=== PATIENT | male | born 1990 | race Caucasian/White ===

== ENCOUNTER 2019-02-04 20:39 | Emergency (ER) | payer SELFPAY ==
--- NOTE | 2019-02-04 20:59 | ER ---
Nurse's Notes [facility] Name: Valentín Solis Age: 28 yrs Sex: Male : 1990 Arrival Date: 02/04/2019 Time: 20:42 Bed 18 Private MD: Diagnosis: Dental pain Presentation: 02/04 20:49 Presenting complaint: Patient states: "I got a bad toothache and I think its caused aj1 infection into my neck because it hurts from the tooth all the way down into my neck." Patient reports that he has been taking Motrin with no relief. Transition of care: patient was not received from another setting of care. Onset of symptoms was February 04, 2019. Risk Assessment: Do you want to hurt yourself or someone else? Patient reports no desire to harm self or others. Initial Sepsis Screen: Does the patient meet any 2 criteria? No. Patient's initial sepsis screen is negative. Does the patient have a suspected source of infection? Yes: Other: reports infected tooth. Care prior to arrival: None. 20:49 Method Of Arrival: Ambulatory aj 20:49 Acuity: BRYANNA 4 aj1 Triage Assessment: 20:51 General: Appears in no apparent distress. uncomfortable, Behavior is calm, cooperative, aj1 appropriate for age. Pain: Complains of pain in left jaw and neck Pain currently is 7 out of 10 on a pain scale. EENT: Reports toothache. Neuro: Level of Consciousness is awake, alert, obeys commands. Cardiovascular: Patient's skin is warm and dry. Respiratory: Airway is patent Respiratory effort is even, unlabored, Respiratory pattern is regular, symmetrical. Historical: - Allergies: 20:51 No Known Allergies; aj1 - Home Meds: 20:51 None [Active]; aj1 - PMHx: 20:51 None; aj1 - PSHx: 20:51 None; aj1 - Immunization history:: Flu vaccine is not up to date. - Social history:: Smoking status: Patient uses tobacco products, smokes one pack cigarettes per day. - Ebola Screening: : Patient denies travel to an Ebola-affected area in the 21 days before illness onset. Screenin:56 Abuse screen: Denies threats or abuse. Denies injuries from another. Nutritional cc3 screening: No deficits noted. Tuberculosis screening: No symptoms or risk factors identified. Fall Risk Ambulatory Aid- None/Bed Rest/Nurse Assist (0 pts). Gait- Normal/Bed Rest/Wheelchair (0 pts) Mental Status- Oriented to own ability (0 pts). Assessment: 20:56 Neuro: Level of Consciousness is awake, alert, obeys commands, Oriented to person, cc3 place, time, situation, Appropriate for age. 21:05 Reassessment: Patient appears in no apparent distress at this time. Patient and/or cc3 family updated on plan of care and expected duration. Pain level reassessed. Patient is alert, oriented x 3, equal unlabored respirations, skin warm/dry/pink. BELINDA Gillis discharged the patient home with prescriptions given. No IV cannula in situ. Patient left ER vitally stable and ambulatory. No valuables left in the patient's room. Patient denies pain at this time. Vital Signs: 20:51 BP 140 / 71; Pulse 93; Resp 18; Temp 98.9(O); Pulse Ox 100% on R/A; Weight 61.23 kg aj1 (R); Height 5 ft. 8 in. (172.72 cm) (R); 20:51 Body Mass Index 20.53 (61.23 kg, 172.72 cm) aj1 ED Course: 20:42 Patient arrived in ED. ds1 20:51 Triage completed. aj1 20:51 Arm band placed on Patient placed in an exam room. aj1 20:55 Chaim Gillis NP is PHCP. pm1 20:55 Jose Baez MD is Attending Physician. pm1 20:56 Itzel Short is Primary Nurse. cc3 20:56 Patient has correct armband on for positive identification. Bed in low position. Call cc3 light in reach. Side rails up X 1. Pulse ox on. NIBP on. 21:05 No provider procedures requiring assistance completed. Patient did not have IV access cc3 during this emergency room visit. Administered Medications: No medications were administered Outcome: 20:59 Discharge ordered by . pm1 21:05 Discharged to home ambulatory. cc3 21:05 Condition: stable 21:05 Discharge instructions given to patient, Instructed on discharge instructions, follow up and referral plans. medication usage, Demonstrated understanding of instructions, follow-up care, medications, Prescriptions given X 2. 21:19 Patient left the ED. cc3 Signatures: Lisa lE RN RN aj1 Rachell Palmer ds1 Chaim Gillis, LANDSCAPE ARCHITECT LANDSCAPE ARCHITECT pm1 tIzel Short cc3
--- NOTE | 2019-02-04 20:59 | EDPHYS ---
Physician Documentation [facility] Name: Valentín Solis Age: 28 yrs Sex: Male : 1990 Arrival Date: 02/04/2019 Time: 20:42 Bed 18 Private MD: ED Physician Jose Baez HPI: 02/04 20:58 This 28 yrs old Male presents to ER via Ambulatory with complaints of Dental pm1 pain. 20:58 The patient presents with pain. The problem is located in the lower left third molar. pm1 Onset: The symptoms/episode began/occurred yesterday. Duration: The symptoms are continuous. Modifying factors: The symptoms are alleviated by nothing. Associated signs and symptoms: Pertinent positives: left anterior cervical lymph node swelling, Pertinent negatives: fever, inability to eat. Severity of symptoms: in the emergency department the symptoms are actually worse. The patient has not experienced similar symptoms in the past. The patient has not recently seen a physician. Historical: - Allergies: 20:51 No Known Allergies; aj1 - Home Meds: 20:51 None [Active]; aj1 - PMHx: 20:51 None; aj1 - PSHx: 20:51 None; aj1 - Immunization history:: Flu vaccine is not up to date. - Social history:: Smoking status: Patient uses tobacco products, smokes one pack cigarettes per day. - Ebola Screening: : Patient denies travel to an Ebola-affected area in the 21 days before illness onset. ROS: 20:58 Constitutional: Negative for fever, chills, and weight loss, Eyes: Negative for injury, pm1 pain, redness, and discharge. 20:58 Cardiovascular: Negative for chest pain, palpitations, and edema, Respiratory: Negative for shortness of breath, cough, wheezing, and pleuritic chest pain, Abdomen/GI: Negative for abdominal pain, nausea, vomiting, diarrhea, and constipation, Back: Negative for injury and pain, MS/Extremity: Negative for injury and deformity, Skin: Negative for injury, rash, and discoloration, Neuro: Negative for headache, weakness, numbness, tingling, and seizure. 20:58 ENT: Positive for dental pain, Negative for ear pain, difficulty swallowing, difficulty handling secretions, hoarseness. 20:58 Neck: Positive for swollen nodes. Exam: 20:58 Constitutional: This is a well developed, well nourished patient who is awake, alert, pm1 and in no acute distress. Head/Face: Normocephalic, atraumatic. 20:58 Chest/axilla: Normal chest wall appearance and motion. Nontender with no deformity. No lesions are appreciated. Cardiovascular: Regular rate and rhythm with a normal S1 and S2. No gallops, murmurs, or rubs. Normal PMI, no JVD. No pulse deficits. Respiratory: Lungs have equal breath sounds bilaterally, clear to auscultation and percussion. No rales, rhonchi or wheezes noted. No increased work of breathing, no retractions or nasal flaring. Back: No spinal tenderness. No costovertebral tenderness. Full range of motion. Skin: Warm, dry with normal turgor. Normal color with no rashes, no lesions, and no evidence of cellulitis. MS/ Extremity: Pulses equal, no cyanosis. Neurovascular intact. Full, normal range of motion. 20:58 ENT: External ear(s): are unremarkable, Ear canal(s): are normal, TM's: are normal, Nose: is normal, Mouth: is normal, no abscess, no drooling, no injury, (-) tongue elevation (-) trismus no ulcerations, Dental exam: dental caries, specifically in the lower left third molar (#17). 20:58 Neck: External neck: is normal, Lymph nodes: lymphadenopathy is appreciated, anterior cervical nodes, left side. 20:58 Neuro: Orientation: is normal, Motor: is normal, moves all fours. Vital Signs: 20:51 BP 140 / 71; Pulse 93; Resp 18; Temp 98.9(O); Pulse Ox 100% on R/A; Weight 61.23 kg aj1 (R); Height 5 ft. 8 in. (172.72 cm) (R); 20:51 Body Mass Index 20.53 (61.23 kg, 172.72 cm) aj1 MDM: 20:55 Patient medically screened. pm1 20:58 Data reviewed: vital signs. Data interpreted: Pulse oximetry: on room air is 100 %. pm1 Interpretation: normal. Counseling: I had a detailed discussion with the patient and/or guardian regarding: the historical points, exam findings, and any diagnostic results supporting the discharge/admit diagnosis, the need for outpatient follow up, for definitive care, a dentist, to return to the emergency department if symptoms worsen or persist or if there are any questions or concerns that arise at home. Administered Medications: No medications were administered Disposition: 02/04/19 20:59 Discharged to Home. Impression: Dental pain. - Condition is Stable. - Discharge Instructions: Dental Caries, Adult, Dental Pain. - Prescriptions for Augmentin 875- 125 mg Oral Tablet - take 1 tablet by ORAL route every 12 hours for 10 days; 20 tablet. Tylenol- Codeine #3 300-30 mg Oral Tablet - take 2 tablets by ORAL route every 6 hours As needed; 20 tablet. - Medication Reconciliation Form, Thank You Letter, Antibiotic Education, Prescription Opioid Use form. - Follow up: Emergency Department; When: As needed; Reason: Worsening of condition. Follow up: Private Physician; When: 2 - 3 days; Reason: Recheck today's complaints, Continuance of care, Re-evaluation by your physician. - Problem is new. - Symptoms have improved. Addendum: 02/06/2019 04:55 Co-signature as Attending Physician, Jose Baez MD I agree with the assessment and t w4 plan of care. Signatures: Lisa El RN RN aj1 Chaim Gillis, DIRECTOR OF PLAYER PERSONNEL DIRECTOR OF PLAYER PERSONNEL pm1 Jose Baez MD MD tw4 Itzel Short cc3 Corrections: (The following items were deleted from the chart) 02/04 21:19 20:59 02/04/2019 20:59 Discharged to Home. Impression: Dental pain. Condition is cc3 Stable. Forms are Medication Reconciliation Form, Thank You Letter, Antibiotic Education, Prescription Opioid Use. Follow up: Emergency Department; When: As needed; Reason: Worsening of condition. Follow up: Private Physician; When: 2 - 3 days; Reason: Recheck today's complaints, Continuance of care, Re-evaluation by your physician. Problem is new. Symptoms have improved. pm1
== END 2019-02-04 21:19 | disposition home or self-care (01) ==
LOC: ER 20:39
DX: K08.89 Other specified disorders of teeth and supporting structures (principal); F17.210 Nicotine dependence, cigarettes, uncomplicated
CPT/HCPCS: 99283

== ENCOUNTER 2020-09-14 20:26 | Emergency (ER) | payer SELFPAY ==
--- NOTE | 2020-09-14 21:54 | EDPHYS ---
Physician Documentation [facility] Name: Valentín Solis Age: 30 yrs Sex: Male : 1990 Arrival Date: 09/14/2020 Time: 20:29 Bed 17 Private MD: ED Physician Angus Smith HPI: 09/14 21:40 This 30 yrs old Male presents to ER via Ambulatory with complaints of cp Toothache, Ear Pain. 21:40 The patient presents with pain. The problem is located in the multiple teeth left upper cp jaw. Onset: The symptoms/episode began/occurred 1 week(s) ago. Duration: The symptoms are continuous, and are steadily getting worse. Associated signs and symptoms: Pertinent negatives: fever, inability to eat, swelling, facial. Severity of symptoms: in the emergency department the symptoms are actually worse, moderately. Historical: - Allergies: 20:46 No Known Allergies; mg2 - Home Meds: 20:46 None [Active]; mg2 - PMHx: 20:46 None; mg2 - PSHx: 20:46 arm sx; mg2 - Immunization history:: Flu vaccine is not up to date. - Social history:: Smoking status: Patient reports the use of cigarette tobacco products, Patient/guardian denies using alcohol. ROS: 21:42 Constitutional: Negative for body aches, chills, fever, poor PO intake. cp 21:42 Eyes: Negative for injury, pain, redness, and discharge. cp 21:42 ENT: Positive for dental pain, ear pain, Negative for sore throat, difficulty swallowing, difficulty handling secretions. 21:42 Neck: Negative for stiffness. 21:42 Cardiovascular: Negative for chest pain. 21:42 Respiratory: Negative for cough, shortness of breath. 21:42 Abdomen/GI: Negative for abdominal pain, nausea, vomiting, and diarrhea. 21:42 Skin: Negative for rash. 21:42 Neuro: Negative for altered mental status, headache. 21:42 All other systems are negative. Exam: 21:45 Constitutional: The patient appears in no acute distress, alert, awake, non-toxic, well cp developed, well nourished, uncomfortable. 21:45 Head/Face: Normocephalic, atraumatic. cp 21:45 Eyes: Periorbital structures: appear normal, Conjunctiva: normal, no exudate, no injection, Lids and lashes: appear normal, bilaterally. 21:45 ENT: External ear(s): are unremarkable, Ear canal(s): are normal, clear, TM's: dullness, bilaterally, Nose: is normal, Mouth: Lips: moist, Oral mucosa: pink and intact, moist, Posterior pharynx: Airway: no evidence of obstruction, patent, Tonsils: are normal in appearance, swelling, is not appreciated, erythema, is not appreciated, exudate, is not appreciated, Dental exam: abscess, is not appreciated, dental caries, that is moderate, diffusely, gum swelling, not appreciated, pain, that is moderate, specifically in the upper left first bicuspid (#12), upper left second bicuspid (#13), upper left first molar (#14), upper left second molar (#15) and upper left third molar (#16), Voice: is normal. 21:45 Neck: ROM/movement: is normal, is supple, without pain, no range of motions limitations, no meningismus, Lymph nodes: no appreciated lymphadenopathy. 21:45 Chest/axilla: Inspection: normal. 21:45 Cardiovascular: Rate: normal. 21:45 Respiratory: the patient does not display signs of respiratory distress, Respirations: normal, no use of accessory muscles, no retractions, labored breathing, is not present. 21:45 Skin: cellulitis, is not appreciated, no rash present. Vital Signs: 20:46 Pulse 95; Resp 18; Temp 98.3; Pulse Ox 100% on R/A; Weight 61.23 kg; Height 5 ft. 9 in. mg2 (175.26 cm); Pain 10/10; 20:48 BP 146 / 91; mg2 22:00 BP 164 / 100; Pulse 96; Resp 18; Pulse Ox 99% on R/A; jb4 20:46 Body Mass Index 19.94 (61.23 kg, 175.26 cm) mg2 MDM: 21:06 Patient medically screened. cp 21:48 Differential diagnosis: dental caries, gingivitis, dental abscess, pericoronitis, cp gingivostomatitis. 21:52 Data reviewed: vital signs, nurses notes. cp 21:52 Counseling: I had a detailed discussion with the patient and/or guardian regarding: the cp historical points, exam findings, and any diagnostic results supporting the discharge/admit diagnosis, to return to the emergency department if symptoms worsen or persist or if there are any questions or concerns that arise at home. Response to treatment: the patient's symptoms have markedly improved after treatment, VSS. Patient appears non-toxic and no signs of respiratory compromise. Pain improved with oral meds. Will discharge to home for continued monitoring. Administered Medications: 21:42 Drug: Hydrocodone-Acetaminophen (7.5 mg-325 mg) 1 tabs Route: PO; jb4 22:01 Follow up: Response: No adverse reaction jb4 21:42 Drug: Augmentin 875 mg Route: PO; jb4 22:01 Follow up: Response: No adverse reaction jb4 Disposition: 09/14/20 21:53 Discharged to Home. Impression: Other specified disorders of teeth and supporting structures. - Condition is Stable. - Discharge Instructions: Dental Pain. - Prescriptions for Amoxicillin 875 mg Oral Tablet - take 1 tablet by ORAL route every 12 hours for 10 days; 20 tablet. Ibuprofen 800 mg Oral Tablet - take 1 tablet by ORAL route every 8 hours As needed take with food; 30 tablet. Tramadol 50 mg Oral Tablet - take 1 tablet by ORAL route every 8 hours as needed; 12 tablet. - Medication Reconciliation Form, Thank You Letter, Antibiotic Education, Prescription Opioid Use form. - Follow up: Private Physician; When: 2 - 3 days; Reason: Recheck today's complaints. - Problem is new. - Symptoms have improved. Addendum: 09/24/2020 07:10 Co-signature as Attending Physician, Man Zavala MD I agree with the assessment and k dr plan of care. Signatures: Man Zavala MD MD [facility] Jaxon Rowell PA PA cp Morgan Perry, TRANG RN jb4 Syed Cooper RN RN mg2 Corrections: (The following items were deleted from the chart) 09/14 22:08 21:53 09/14/2020 21:53 Discharged to Home. Impression: Other specified disorders of jb4 teeth and supporting structures. Condition is Stable. Forms are Medication Reconciliation Form, Thank You Letter, Antibiotic Education, Prescription Opioid Use. Follow up: Private Physician; When: 2 - 3 days; Reason: Recheck today's complaints. Problem is new. Symptoms have improved. cp
--- NOTE | 2020-09-14 21:54 | ER ---
Nurse's Notes [facility] Name: Valentín Solis Age: 30 yrs Sex: Male : 1990 Arrival Date: 09/14/2020 Time: 20:29 Bed 17 Private MD: Diagnosis: Other specified disorders of teeth and supporting structures Presentation: 09/14 20:46 Chief complaint: Patient states: i have toothache for a week and it pain comes in mg2 waves. i took 4 aleve an hour ago but not helping. Coronavirus screen: Client denies travel out of the [place] in the last 14 days. At this time, the client does not indicate any symptoms associated with coronavirus-19. Ebola Screen: No symptoms or risks identified at this time. Initial Sepsis Screen: Does the patient meet any 2 criteria? No. Patient's initial sepsis screen is negative. Does the patient have a suspected source of infection? No. Patient's initial sepsis screen is negative. Risk Assessment: Do you want to hurt yourself or someone else? Patient reports no desire to harm self or others. Onset of symptoms was August 2020. 20:46 Method Of Arrival: Ambulatory mg2 20:46 Acuity: BRYANNA 4 mg2 Historical: - Allergies: 20:46 No Known Allergies; mg2 - Home Meds: 20:46 None [Active]; mg2 - PMHx: 20:46 None; mg2 - PSHx: 20:46 arm sx; mg2 - Immunization history:: Flu vaccine is not up to date. - Social history:: Smoking status: Patient reports the use of cigarette tobacco products, Patient/guardian denies using alcohol. Screenin:00 Abuse screen: Denies threats or abuse. Nutritional screening: No deficits noted. jb4 Tuberculosis screening: No symptoms or risk factors identified. Fall Risk None identified. Assessment: 21:00 General: Appears in no apparent distress. uncomfortable, Behavior is calm, cooperative, jb4 appropriate for age. Pain: Complains of pain in mouth Pain radiates to face Pain currently is 10 out of 10 on a pain scale. Quality of pain is described as throbbing. Neuro: Level of Consciousness is awake, alert, obeys commands, Oriented to person, place, time, situation. Cardiovascular: Patient's skin is warm and dry. Respiratory: Airway is patent Respiratory effort is even, unlabored, Respiratory pattern is regular, symmetrical. GI: No signs and/or symptoms were reported involving the gastrointestinal system. : No signs and/or symptoms were reported regarding the genitourinary system. EENT: Poor dentition noted. Dental caries noted in upper left first bicuspid (#12), upper left second bicuspid (#13) and upper left first molar (#14). Derm: Skin is intact, is healthy with good turgor, is fragile, Skin is pink, warm \T\ dry. Musculoskeletal: Circulation, motion, and sensation intact. Range of motion: intact in all extremities. 21:45 Reassessment: Patient appears in no apparent distress at this time. Patient and/or jb4 family updated on plan of care and expected duration. Pain level reassessed. Patient is alert, oriented x 3, equal unlabored respirations, skin warm/dry/pink. Vital Signs: 20:46 Pulse 95; Resp 18; Temp 98.3; Pulse Ox 100% on R/A; Weight 61.23 kg; Height 5 ft. 9 in. mg2 (175.26 cm); Pain 10/10; 20:48 BP 146 / 91; mg2 22:00 BP 164 / 100; Pulse 96; Resp 18; Pulse Ox 99% on R/A; jb4 20:46 Body Mass Index 19.94 (61.23 kg, 175.26 cm) mg2 ED Course: 20:29 Patient arrived in ED. cf2 20:48 Triage completed. mg2 20:48 Arm band placed on. mg2 20:50 Morgan Perry, RN is Primary Nurse. jb4 21:00 Patient has correct armband on for positive identification. Bed in low position. Call jb4 light in reach. Side rails up X 1. Pulse ox on. NIBP on. 21:02 Jaxon Rowell PA is PHCP. cp 21:02 Angus Smith MD is Attending Physician. cp 22:08 No provider procedures requiring assistance completed. Patient did not have IV access jb4 during this emergency room visit. Administered Medications: 21:42 Drug: Hydrocodone-Acetaminophen (7.5 mg-325 mg) 1 tabs Route: PO; jb4 22:01 Follow up: Response: No adverse reaction jb4 21:42 Drug: Augmentin 875 mg Route: PO; jb4 22:01 Follow up: Response: No adverse reaction jb4 Outcome: 21:53 Discharge ordered by . nikki 22:08 Discharged to home ambulatory. jb4 22:08 Condition: stable 22:08 Discharge instructions given to patient, Instructed on discharge instructions, follow up and referral plans. medication usage, Demonstrated understanding of instructions, follow-up care, medications, Prescriptions given X 3. 22:08 Patient left the ED. jb4 Signatures: Jaxon Rowell PA PA cp Bryson, James, RN RN jb4 Syed Cooper RN RN [facility] Yaa Stanton 2
[2020-09-14] MEDS ORDERED: HYDROCODONE/APAP 7.5/325 MG TAB ONE (21:56)
[2020-09-14] MEDS ORDERED: AMOX/K CLAV 875 MG TAB ONE (21:56)
[2020-09-15 02:19] VITALS: TEMP 98.3
[2020-09-15 02:21] VITALS: BP 164/100; O2SAT 99
== END 2020-09-14 22:08 | disposition home or self-care (01) ==
LOC: ER 20:26
DX: K02.9 Dental caries, unspecified (principal); Z72.0 Tobacco use
CPT/HCPCS: 99283

== ENCOUNTER 2020-09-21 15:03 | Emergency (ER) | payer SELFPAY ==
--- NOTE | 2020-09-21 16:34 | ER ---
Nurse's Notes [facility] Name: Valentín Solis Age: 30 yrs Sex: Male : 1990 Arrival Date: 09/21/2020 Time: 15:07 Bed 24 Private MD: Diagnosis: Dental pain Presentation: 09/21 15:30 Chief complaint: Patient states: L upper tooth pain x 1 week, worse this morning. Was ca1 here last week, ABX completed. Toothache worst this morning. Still trying to make a dentist appointment. Coronavirus screen: Client denies travel out of the [place] in the last 14 days. At this time, the client does not indicate any symptoms associated with coronavirus-19. Ebola Screen: Patient negative for fever greater than or equal to 101.5 degrees Fahrenheit, and additional compatible Ebola Virus Disease symptoms Patient denies exposure to infectious person. Patient denies travel to an Ebola-affected area in the 21 days before illness onset. No symptoms or risks identified at this time. Initial Sepsis Screen: Does the patient meet any 2 criteria? No. Patient's initial sepsis screen is negative. Does the patient have a suspected source of infection? No. Patient's initial sepsis screen is negative. Risk Assessment: Do you want to hurt yourself or someone else? Patient reports no desire to harm self or others. Onset of symptoms was September 21, 2020. 15:30 Method Of Arrival: Ambulatory ca1 15:30 Acuity: BRYANNA 4 ca1 Historical: - Allergies: 15:33 No Known Allergies; ca1 - Home Meds: 15:33 None [Active]; ca1 - PMHx: 15:33 None; ca1 - PSHx: 15:33 None; ca1 - Immunization history:: Flu vaccine is not up to date. - Social history:: Smoking status: Patient reports the use of cigarette tobacco products, smokes one-half pack cigarettes per day. Vital Signs: 15:30 BP 140 / 82; Pulse 95; Resp 16 S; Temp 98.6(TE); Pulse Ox 100% on R/A; Weight 61.23 kg ca1 (R); Height 5 ft. 7 in. (170.18 cm) (R); Pain 10/10; 15:30 Body Mass Index 21.14 (61.23 kg, 170.18 cm) ca1 ED Course: 15:07 Patient arrived in ED. bg2 15:33 Triage completed. ca1 15:33 Arm band placed on right wrist. ca1 16:24 Chaim Gillis NP is PHCP. pm1 16:24 Jaxon Albert MD is Attending Physician. pm1 16:44 Crystal Guerrero, RN is Primary Nurse. iw Administered Medications: 16:58 Drug: [place] 10 mg-325 mg 1 tabs Route: PO; iw 17:10 Follow up: Response: No adverse reaction iw Outcome: 16:33 Discharge ordered by . pm1 16:58 Discharged to home ambulatory. iw 16:58 Condition: good 16:58 Discharge instructions given to patient, Instructed on discharge instructions, follow up and referral plans. medication usage, Demonstrated understanding of instructions, follow-up care, medications, Prescriptions given X 2. 16:58 Patient left the ED. iw Signatures: Crystal Guerrero, RN RN iw Carmelina Fisher bg2 Chaim Gillis NP [employer]NA[employer] pm1 Evelyn Hudson RN RN ca1
--- NOTE | 2020-09-21 16:34 | EDPHYS ---
Physician Documentation [facility] Name: Valentín Solis Age: 30 yrs Sex: Male : 1990 Arrival Date: 09/21/2020 Time: 15:07 Bed 24 Private MD: ED Physician Jaxon Albert HPI: 09/21 16:35 This 30 yrs old Male presents to ER via Ambulatory with complaints of Dental pm1 Pain. 16:38 The patient presents with pain. The problem is located in the multiple left upper pm1 teeth. Onset: The symptoms/episode began/occurred 2 week(s) ago. Duration: The symptoms are continuous, and are unchanged since they started. Modifying factors: The symptoms are alleviated by cool water to numb it, the symptoms are aggravated by food. Associated signs and symptoms: Pertinent negatives: dysphagia, fever, inability to eat, swelling. Severity of symptoms: in the emergency department the symptoms are unchanged. The patient has not recently seen a physician, has not seen dentist yet since last ER visit. Historical: - Allergies: 15:33 No Known Allergies; ca1 - Home Meds: 15:33 None [Active]; ca1 - PMHx: 15:33 None; ca1 - PSHx: 15:33 None; ca1 - Immunization history:: Flu vaccine is not up to date. - Social history:: Smoking status: Patient reports the use of cigarette tobacco products, smokes one-half pack cigarettes per day. ROS: 16:38 Constitutional: Negative for fever, chills, and weight loss. pm1 16:38 Cardiovascular: Negative for chest pain, palpitations, and edema, Respiratory: Negative for shortness of breath, cough, wheezing, and pleuritic chest pain, Abdomen/GI: Negative for abdominal pain, nausea, vomiting, diarrhea, and constipation, MS/Extremity: Negative for injury and deformity, Skin: Negative for injury, rash, and discoloration, Neuro: Negative for headache, weakness, numbness, tingling, and seizure. 16:38 ENT: Positive for dental pain, Negative for sore throat, difficulty swallowing, difficulty handling secretions, hoarseness. Exam: 16:38 Constitutional: This is a well developed, well nourished patient who is awake, alert, pm1 and in no acute distress. Head/Face: Normocephalic, atraumatic. 16:38 Skin: Warm, dry with normal turgor. Normal color with no rashes, no lesions, and no evidence of cellulitis. MS/ Extremity: Pulses equal, no cyanosis. Neurovascular intact. Full, normal range of motion. 16:38 ENT: Dental exam: abscess, is not appreciated, dental caries, that is moderate, specifically in the upper left first bicuspid (#12), upper left second bicuspid (#13), upper left first molar (#14), upper left second molar (#15) and upper left third molar (#16), gum swelling, not appreciated, Voice: is normal. 16:38 Cardiovascular: Exam negative for acute changes, Rate: normal, Rhythm: regular, Pulses: no pulse deficits are appreciated. 16:38 Respiratory: Exam negative for acute changes, respiratory distress, shortness of breath. 16:38 Neuro: Exam negative for acute changes, Orientation: is normal, Mentation: is normal, Motor: is normal, moves all fours. Vital Signs: 15:30 BP 140 / 82; Pulse 95; Resp 16 S; Temp 98.6(TE); Pulse Ox 100% on R/A; Weight 61.23 kg ca1 (R); Height 5 ft. 7 in. (170.18 cm) (R); Pain 10/10; 15:30 Body Mass Index 21.14 (61.23 kg, 170.18 cm) ca1 MDM: 16:26 Patient medically screened. pm1 16:32 Data reviewed: vital signs. Data interpreted: Pulse oximetry: on room air is 100 %. pm1 Interpretation: normal. Counseling: I had a detailed discussion with the patient and/or guardian regarding: the historical points, exam findings, and any diagnostic results supporting the discharge/admit diagnosis, the need for outpatient follow up, for definitive care, a dentist, to return to the emergency department if symptoms worsen or persist or if there are any questions or concerns that arise at home. 16:38 ED course: DIRECTOR [employer] Aware reviewed. pm1 Administered Medications: 16:58 Drug: Keeler 10 mg-325 mg 1 tabs Route: PO; iw 17:10 Follow up: Response: No adverse reaction iw Disposition: 09/21/20 16:33 Discharged to Home. Impression: Dental pain. - Condition is Stable. - Discharge Instructions: Dental Pain. - Prescriptions for Augmentin 875- 125 mg Oral Tablet - take 1 tablet by ORAL route every 12 hours for 10 days; 20 tablet. Tylenol- Codeine #3 300-30 mg Oral Tablet - take 2 tablets by ORAL route every 4-6 hours As needed; 20 tablet. - Medication Reconciliation Form, Thank You Letter, Antibiotic Education, Prescription Opioid Use form. - Follow up: Emergency Department; When: As needed; Reason: Worsening of condition. Follow up: Private Physician; When: 2 - 3 days; Reason: Recheck today's complaints, Continuance of care, Re-evaluation by your physician. - Problem is new. - Symptoms have improved. Addendum: 09/22/2020 19:48 Co-signature as Attending Physician, Jaxon Albert MD I agree with the assessment and c key plan of care. Signatures: Jaxon Albert MD MD cha Williams, Irene, RN RN iw Chaim Gillis, BELINDA CPA TAX pm1 Evelyn Hudson RN RN ca1 Corrections: (The following items were deleted from the chart) 09/21 16:58 16:33 09/21/2020 16:33 Discharged to Home. Impression: Dental pain. Condition is iw Stable. Forms are Medication Reconciliation Form, Thank You Letter, Antibiotic Education, Prescription Opioid Use. Follow up: Emergency Department; When: As needed; Reason: Worsening of condition. Follow up: Private Physician; When: 2 - 3 days; Reason: Recheck today's complaints, Continuance of care, Re-evaluation by your physician. Problem is new. Symptoms have improved. pm1
[2020-09-21] MEDS ORDERED: HYDROCODONE/APAP 10/325 TAB ONE (17:12)
[2020-09-21 18:39] VITALS: BP 140/82; TEMP 98.6; O2SAT 100
== END 2020-09-21 16:58 | disposition home or self-care (01) ==
LOC: ER 15:03
DX: K08.89 Other specified disorders of teeth and supporting structures (principal); F17.210 Nicotine dependence, cigarettes, uncomplicated
CPT/HCPCS: 99283

== ENCOUNTER 2021-05-25 11:51 | Emergency (ER) | payer BC, SELFPAY ==
[2021-05-25] MEDS ORDERED: ACETAMINOPHEN 500 MG TAB ONE (13:30)
[2021-05-25 13:34] LABS: SARS-COV-2 RT PCR NEGATIVE (NEGATIVE)
--- NOTE | 2021-05-25 13:47 | ER ---
Nurse's Notes [facility] Name: Valentín Solis Age: 31 yrs Sex: Male : 1990 Arrival Date: 05/25/2021 Time: 11:55 Bed 24 Private MD: Diagnosis: Acute upper respiratory infection, unspecified Presentation: 05/25 12:07 Chief complaint: Patient states: body aches, chills, congestion, cough, diarrhea since iw yesterday. Coronavirus screen: Client presents with at least one sign or symptom that may indicate coronavirus-19. Standard/surgical mask placed on the client. Provider contacted for isolation considerations. Ebola Screen: Patient negative for fever greater than or equal to 101.5 degrees Fahrenheit, and additional compatible Ebola Virus Disease symptoms Patient denies exposure to infectious person. Patient denies travel to an Ebola-affected area in the 21 days before illness onset. No symptoms or risks identified at this time. Initial Sepsis Screen: Does the patient meet any 2 criteria? No. Patient's initial sepsis screen is negative. Does the patient have a suspected source of infection? No. Patient's initial sepsis screen is negative. Risk Assessment: Do you want to hurt yourself or someone else? Patient reports no desire to harm self or others. Onset of symptoms was May 24, 2021. 12:07 Method Of Arrival: Ambulatory iw 12:07 Acuity: BRYANNA 4 iw Historical: - Allergies: 12:10 No Known Allergies; iw - Home Meds: 12:10 None [Active]; iw - PMHx: 12:10 None; iw - PSHx: 12:10 None; iw - Immunization history:: Client reports having NOT received the Covid vaccine. - Social history:: Smoking status: Reported history of juuling and/or vaping. Screenin:15 Abuse screen: Denies threats or abuse. Denies injuries from another. Nutritional ld1 screening: No deficits noted. Tuberculosis screening: No symptoms or risk factors identified. Fall Risk None identified. Assessment: 12:15 General: Appears in no apparent distress. comfortable, Behavior is calm, cooperative, ld1 appropriate for age. Pain: Complains of pain in face Pain does not radiate. Pain currently is 7 out of 10 on a pain scale. Quality of pain is described as throbbing, Pain began 2-3 days ago. Is continuous. 12:15 Neuro: Level of Consciousness is awake, alert, obeys commands, Oriented to person, ld1 place, time, situation. Cardiovascular: Capillary refill < 3 seconds Patient's skin is warm and dry. Respiratory: Airway is patent Respiratory effort is even, unlabored, Respiratory pattern is regular, symmetrical. GI: Abdomen is flat, non-distended. : No signs and/or symptoms were reported regarding the genitourinary system. EENT: No signs and/or symptoms were reported regarding the EENT system. Derm: No signs and/or symptoms reported regarding the dermatologic system. Musculoskeletal: No signs and/or symptoms reported regarding the musculoskeletal system. Vital Signs: 12:07 BP 126 / 67; Pulse 98; Resp 18 S; Temp 99.7; Pulse Ox 98% on R/A; Weight 61.23 kg; iw Height 5 ft. 9 in. (175.26 cm); Pain 8/10; 12:15 BP 111 / 82; Pulse 96; Resp 18; Pulse Ox 98% on R/A; ld1 13:46 BP 127 / 63; Pulse 101; Resp 18; Pulse Ox 97% on R/A; ld1 12:07 Body Mass Index 19.94 (61.23 kg, 175.26 cm) iw ED Course: 11:55 Patient arrived in ED. am2 11:59 Magalys [facility]ate [facility]C [facility] kb 11:59 Lanny Mendieta MD is Attending Physician. kb 12:10 Triage completed. iw 12:11 Arm band placed on. iw 12:15 Patient has correct armband on for positive identification. Placed in gown. Bed in low ld1 position. Call light in reach. Side rails up X2. cast iron dipper on. Pulse ox on. NIBP on. Door closed. Noise minimized. Warm blanket given. 12:15 No provider procedures requiring assistance completed. ld1 12:16 Arielle Duval, TRANG is Primary Nurse. ld1 12:25 Flu Sent. ld1 13:55 Patient did not have IV access during this emergency room visit. ld1 Administered Medications: 13:47 Drug: Tylenol 1000 mg Route: PO; ld1 13:47 Follow up: Response: No adverse reaction ld1 Outcome: 13:47 Discharge ordered by . kb 13:55 Discharged to home ambulatory. ld1 13:55 Condition: stable 13:55 Discharge instructions given to patient, Instructed on discharge instructions, follow up and referral plans. Demonstrated understanding of instructions, follow-up care. 13:55 Patient left the ED. ld1 Signatures: Magalys Arzate, SUPERVISOR DIALS-C SUPERVISOR DIALS-Ckb Crystal Guerrero, RN RN Pattie Skinner Lauren, RN RN ld1 Corrections: (The following items were deleted from the chart) 12:50 12:25 SARS-COV-2 RT PCR+MOL.LAB.RADHA drawn and sent. ld1 EDMS
--- NOTE | 2021-05-25 13:48 | EDPHYS ---
Physician Documentation [facility] Name: Valentín Solis Age: 31 yrs Sex: Male : 1990 Arrival Date: 05/25/2021 Time: 11:55 Bed 24 Private MD: ED Physician Lanny Mendieta HPI: 05/25 13:46 This 31 yrs old Male presents to ER via Ambulatory with complaints of Flu kb Symptoms, Cold Symptoms, r/o covid. 13:46 The patient or guardian reports cough, that is intermittent, described as moderate, flu kb symptoms, low-grade fever, myalgias. Onset: The symptoms/episode began/occurred last night. Severity of symptoms: At their worst the symptoms were moderate, in the emergency department the symptoms are unchanged. Modifying factors: The symptoms are alleviated by nothing, the symptoms are aggravated by nothing. Associated signs and symptoms: Pertinent positives: fever, rhinorrhea, Pertinent negatives: chest pain, diarrhea, ear ache, nausea, sore throat, vomiting. The patient has not experienced similar symptoms in the past. The patient has not recently seen a physician. Historical: - Allergies: 12:10 No Known Allergies; iw - Home Meds: 12:10 None [Active]; iw - PMHx: 12:10 None; iw - PSHx: 12:10 None; iw - Immunization history:: Client reports having NOT received the Covid vaccine. - Social history:: Smoking status: Reported history of juuling and/or vaping. ROS: 13:45 Cardiovascular: Negative for chest pain, palpitations, and edema. kb 13:45 Constitutional: Positive for body aches, chills, fatigue, fever, malaise. 13:45 ENT: Positive for sinus congestion. 13:45 Respiratory: Positive for cough, Negative for dyspnea on exertion, hemoptysis, orthopnea, pleurisy, shortness of breath, sputum production, wheezing. 13:45 All other systems are negative. Exam: 13:46 Constitutional: This is a well developed, well nourished patient who is awake, alert, kb and in no acute distress. Head/Face: Normocephalic, atraumatic. ENT: Moist Mucous membranes Cardiovascular: Regular rate and rhythm with a normal S1 and S2. No gallops, murmurs, or rubs. No pulse deficits. Respiratory: Respirations even and unlabored. No increased work of breathing, no retractions or nasal flaring. Skin: Warm, dry with normal turgor. Normal color. MS/ Extremity: Pulses equal, no cyanosis. Neurovascular intact. Full, normal range of motion. Neuro: Awake and alert, GCS 15, oriented to person, place, time, and situation. Moves all extremities. Normal gait. Psych: Awake, alert, with orientation to person, place and time. Behavior, mood, and affect are within normal limits. Vital Signs: 12:07 BP 126 / 67; Pulse 98; Resp 18 S; Temp 99.7; Pulse Ox 98% on R/A; Weight 61.23 kg; iw Height 5 ft. 9 in. (175.26 cm); Pain 8/10; 12:15 BP 111 / 82; Pulse 96; Resp 18; Pulse Ox 98% on R/A; ld1 13:46 BP 127 / 63; Pulse 101; Resp 18; Pulse Ox 97% on R/A; ld1 12:07 Body Mass Index 19.94 (61.23 kg, 175.26 cm) iw MDM: 12:10 Patient medically screened. kb 13:44 Data reviewed: vital signs, nurses notes. Data interpreted: Pulse oximetry: on room air kb is 98 %. Interpretation: normal. Counseling: I had a detailed discussion with the patient and/or guardian regarding: the historical points, exam findings, and any diagnostic results supporting the discharge/admit diagnosis, lab results, the need for outpatient follow up, a family practitioner, to return to the emergency department if symptoms worsen or persist or if there are any questions or concerns that arise at home. 05/25 12:18 Order name: Flu; Complete Time: 13:10 kb 05/25 12:50 Order name: COVID-19/FLU A+B; Complete Time: 13:35 EDMS Administered Medications: 13:47 Drug: Tylenol 1000 mg Route: PO; ld1 13:47 Follow up: Response: No adverse reaction ld1 Disposition: 05/26 09:14 Co-signature as Attending Physician, Lanny Mendieta MD I agree with the assessment and sp3 plan of care. Disposition Summary: 05/25/21 13:47 Discharge Ordered Location: Home kb Condition: Stable kb Diagnosis - Acute upper respiratory infection, unspecified kb Followup: kb - With: Emergency Department - When: As needed - Reason: Worsening of condition Followup: kb - With: Private Physician - When: 2 - 3 days - Reason: Recheck today's complaints, Continuance of care, Re-evaluation by your physician Discharge Instructions: - Discharge Summary Sheet kb - Upper Respiratory Infection, Adult, [id number] kb - Viral Respiratory Infection, [id number] kb Forms: - Medication Reconciliation Form kb - Thank You Letter kb - Antibiotic Education kb - Prescription Opioid Use kb Signatures: Dispatcher [employer] EDIN Magalys Arzate, THICKENER OPERATOR-C THICKENER OPERATOR-CkCrystal Elaine, RN RN iw Arielle Duval RN RN ld1 Lanny Mendieta MD MD sp3 Corrections: (The following items were deleted from the chart) 05/25 12:50 12:19 SARS-COV-2 RT PCR+MOL.LAB.BRZ ordered. [facility]
[2021-05-25 14:59] VITALS: TEMP 99.7
[2021-05-25 15:02] VITALS: BP 127/63; O2SAT 97
== END 2021-05-25 13:55 | disposition home or self-care (01) ==
LOC: ER 11:51
DX: J06.9 Acute upper respiratory infection, unspecified (principal); Z20.822 Contact with and (suspected) exposure to COVID-19
CPT/HCPCS: 0240U; 87804 ×2; 99284

== ENCOUNTER 2024-03-09 20:32 | Emergency (ER) | payer BC, SELFPAY ==
--- NOTE | 2024-03-09 20:49 | ER ---
Nurse's Notes [facility] Name: Vlaentín Solis Age: 33 yrs Sex: Male : 1990 Arrival Date: 03/09/2024 Time: 20:32 Bed IW1 Private MD: Diagnosis: Dental caries, unspecified Presentation: 03/09 20:41 Chief complaint: Patient states: tooth started to ache today, cold water is only thing tm6 that relieves the pain. Coronavirus screen: Vaccine status: Patient reports being unvaccinated. Ebola Screen: Patient negative for fever greater than or equal to 101.5 degrees Fahrenheit, and additional compatible Ebola Virus Disease symptoms Patient denies exposure to infectious person. Patient denies travel to an Ebola-affected area in the 21 days before illness onset. No symptoms or risks identified at this time. Initial Sepsis Screen: Does the patient meet any 2 criteria? No. Patient's initial sepsis screen is negative. Does the patient have a suspected source of infection? No. Patient's initial sepsis screen is negative. Risk Assessment: Do you want to hurt yourself or someone else? Patient reports no desire to harm self or others. Onset of symptoms was March 09, 2024. 20:41 Method Of Arrival: Ambulatory tm6 20:41 Acuity: BRYANNA 4 tm6 Triage Assessment: 20:43 General: Appears in no apparent distress. Behavior is calm, cooperative. Pain: tm6 Complains of pain in mouth Pain does not radiate. Pain currently is 8 out of 10 on a pain scale. Pain began 1 day ago. 20:43 EENT: Reports pain in mouth. Neuro: Level of Consciousness is awake, alert, obeys tm6 commands, Oriented to person, place, time, situation. Cardiovascular: Patient's skin is warm and dry. Respiratory: Airway is patent Respiratory effort is even, unlabored, Respiratory pattern is regular, symmetrical. GI: No signs and/or symptoms were reported involving the gastrointestinal system. Abdomen is flat, non-distended. : No signs and/or symptoms were reported regarding the genitourinary system. Derm: No signs and/or symptoms reported regarding the dermatologic system. Musculoskeletal: No signs and/or symptoms reported regarding the musculoskeletal system. Historical: - Allergies: 20:43 No Known Allergies; tm6 - PMHx: 20:43 None; tm6 - PSHx: 20:43 None; tm6 - Immunization history:: Client reports having NOT received the Covid vaccine. - Infectious Disease History:: Denies. - Social history:: Smoking status: Patient reports the use of cigarette tobacco products, smokes one pack cigarettes per day. Patient/guardian denies using alcohol. Screenin:48 [facility] ED Fall Risk Assessment (Adult) History of falling in the last 3 months, tm6 including since admission No falls in past 3 months (0 pts) Confusion or Disorientation No (0 pts) Intoxicated or Sedated No (0 pts) Impaired Gait No (0 pts) Mobility Assist Device Used No (0 pt) Altered Elimination No (0 pt) Score/Fall Risk Level 0 - 2 = Low Risk Oriented to surroundings, Maintained a safe environment, Educated pt \T\ family on fall prevention, incl call for assistance when getting out of bed. Abuse screen: Denies threats or abuse. Denies injuries from another. Nutritional screening: No deficits noted. Tuberculosis screening: No symptoms or risk factors identified. Assessment: 20:48 Reassessment: see triage assessment. tm6 Vital Signs: 20:40 BP 130 / 80; Pulse 59; Resp 19; Temp 97.3(TE); Pulse Ox 100% on R/A; Weight 68.04 kg; tm6 Height 5 ft. 8 in. ; Pain 8/10; 20:40 Body Mass Index 22.81 (68.04 kg, 172.72 cm) tm6 20:40 Pain Scale: Adult tm6 ED Course: 20:36 Patient arrived in ED. gm2 20:36 Flori Aparicio PA-C [facility]. sb4 20:36 Carloz Witt MD is Attending Physician. sb4 20:43 Triage completed. tm6 20:43 Arm band placed on left wrist. tm6 20:48 Patient has correct armband on for positive identification. Provided Education on: tm6 dental clinic resources. 20:48 No provider procedures requiring assistance completed. Patient did not have IV access tm6 during this emergency room visit. Administered Medications: 21:02 Drug: Hydrocodone-Acetaminophen PO (7.5 mg-325 mg) 1 tabs PO once Route: PO; tm6 21:02 Follow up: Response: Medication administered at discharge. tm6 21:02 Drug: Ondansetron Oral Disintegrating Tablet Oral Disintegrating Tablet 4 mg PO once tm6 Route: PO; 21:02 Follow up: Response: Medication administered at discharge. tm6 21:02 Drug: Amoxicillin-Clavulanate PO 875 mg PO once Route: PO; tm6 21:02 Follow up: Response: Medication administered at discharge. tm6 Medication: 20:48 VIS not applicable for this client. tm6 Outcome: 20:49 Discharge ordered by . lois 21:02 Discharged to home ambulatory, with family, tm6 21:02 Condition: stable 21:02 Discharge instructions given to patient, Instructed on discharge instructions, follow up and referral plans. medication usage, Demonstrated understanding of instructions, follow-up care, medications, Prescriptions given X 1, 21:03 Patient left the ED. tm6 Signatures: Flori Aparicio PA-C PA-C sb4 Tamar Valdez 2 Wang Reynolds, RN RN tm6
--- NOTE | 2024-03-09 20:49 | EDPHYS ---
Physician Documentation [facility] Name: Valentín Solis Age: 33 yrs Sex: Male : 1990 Arrival Date: 03/09/2024 Time: 20:32 Bed IW1 Private MD: ED Physician Carloz Witt HPI: 03/09 20:55 This 33 yrs old Male presents to ER via Ambulatory with complaints of Toothache. sb4 20:55 The patient presents with broken tooth/teeth, pain. The problem is located in the upper sb4 right first bicuspid. Onset: The symptoms/episode began/occurred at an unknown time. and became worse today. Modifying factors: The symptoms are alleviated by cold water, the symptoms are aggravated by air, chewing. Associated signs and symptoms: The patient has no apparent associated signs or symptoms. The patient has experienced a previous episode, many years ago. The patient has not recently seen a physician. Historical: - Allergies: 20:43 No Known Allergies; tm6 - PMHx: 20:43 None; tm6 - PSHx: 20:43 None; tm6 - Immunization history:: Client reports having NOT received the Covid vaccine. - Infectious Disease History:: Denies. - Social history:: Smoking status: Patient reports the use of cigarette tobacco products, smokes one pack cigarettes per day. Patient/guardian denies using alcohol. ROS: 20:55 Constitutional: Negative for fever, chills, and weight loss, sb4 20:55 ENT: Positive for dental pain, 20:55 All other systems are negative, Exam: 20:57 Constitutional: This is a well developed, well nourished patient who is awake, alert, sb4 and in no acute distress. Head/Face: Normocephalic, atraumatic. Eyes: Extra-ocular motions intact. Periorbital areas with no swelling, redness, or edema. Skin: Warm, dry with normal turgor. Normal color with no rashes, no lesions, and no evidence of cellulitis. 20:57 ENT: Dental exam: cellulitis, is not appreciated, dental caries, diffusely, specifically in the upper right first bicuspid, fractured teeth are noted, Vital Signs: 20:40 BP 130 / 80; Pulse 59; Resp 19; Temp 97.3(TE); Pulse Ox 100% on R/A; Weight 68.04 kg; tm6 Height 5 ft. 8 in. ; Pain 8/10; 20:40 Body Mass Index 22.81 (68.04 kg, 172.72 cm) tm6 20:40 Pain Scale: Adult tm6 MDM: 20:40 Patient medically screened. sb4 20:57 Data reviewed: vital signs, nurses notes, and as a result, I will discharge patient. sb4 Counseling: I had a detailed discussion with the patient and/or guardian regarding the historical points, exam findings, and any diagnostic results supporting the discharge/admit diagnosis, the need for outpatient follow up, a dentist, to return to the emergency department if symptoms worsen or persist or if there are any questions or concerns that arise at home. Administered Medications: 21:02 Drug: Hydrocodone-Acetaminophen PO (7.5 mg-325 mg) 1 tabs PO once Route: PO; tm6 21:02 Follow up: Response: Medication administered at discharge. tm6 21:02 Drug: Ondansetron Oral Disintegrating Tablet Oral Disintegrating Tablet 4 mg PO once tm6 Route: PO; 21:02 Follow up: Response: Medication administered at discharge. tm6 21:02 Drug: Amoxicillin-Clavulanate PO 875 mg PO once Route: PO; tm6 21:02 Follow up: Response: Medication administered at discharge. tm6 Disposition: 03/10 06:56 Co-signature as Attending Physician, Carloz Witt MD I agree with the assessment sp4 and plan of care. I reviewed the patient's care provided by the Advanced Practice Provider and agree with the diagnosis and treatment plan. Disposition Summary: 03/09/24 20:49 Discharge Ordered Notes: Location: Home sb4 Problem: new sb4 Symptoms: have improved sb4 Condition: Stable sb4 Diagnosis - Dental caries, unspecified sb4 Followup: sb4 - With: Private Physician - When: 2 - 3 days - Reason: Recheck today's complaints, Re-evaluation by your physician Discharge Instructions: - Discharge Summary Sheet sb4 - Dental Caries, Adult sb4 - Dental Pain, [id number] sb4 Forms: - Antibiotic Education sb4 - Patient Portal Instructions sb4 - Leadership Thank You Letter sb4 Prescriptions: - Amoxicillin 875 mg Oral Tablet - take 1 tablet ORAL route every 12 hours for 10 days; 20 tablet; Refills: 0, sb4 Product Selection Permitted Signatures: Flori Aparicio, NNEKA EARLY sb4 Carloz Witt MD MD sp4 Wang Reynolds, RN RN tm6
[2024-03-09] MEDS ORDERED: ONDANSETRON 4 MG (ODT) TAB ONE (20:59)
[2024-03-09] MEDS ORDERED: AMOX/K CLAV 875 MG TAB ONE (20:59)
[2024-03-09] MEDS ORDERED: HYDROCODONE/APAP 7.5/325 MG TAB ONE (21:00)
[2024-03-09 21:40] VITALS: BP 130/80; TEMP 97.3; O2SAT 100
== END 2024-03-09 21:03 | disposition home or self-care (01) ==
LOC: ER 20:32
DX: K02.9 Dental caries, unspecified (principal); F17.210 Nicotine dependence, cigarettes, uncomplicated
CPT/HCPCS: 99283; Q0162

== ENCOUNTER 2024-03-13 08:58 | Emergency (ER) | payer SELFPAY ==
--- NOTE | 2024-03-13 09:38 | ER ---
Nurse's Notes [facility] Name: Valentín Solis Age: 33 yrs Sex: Male : 1990 Arrival Date: 03/13/2024 Time: 08:58 Bed 16 Private MD: Diagnosis: Dental abscess Presentation: 03/13 09:12 Chief complaint: Patient states: was see here three days ago for a bad tooth on right iw side, having facial swelling now , has been on amoxicillin. Coronavirus screen: At this time, the client does not indicate any symptoms associated with coronavirus-19. Ebola Screen: No symptoms or risks identified at this time. Initial Sepsis Screen: Does the patient meet any 2 criteria? No. Patient's initial sepsis screen is negative. Does the patient have a suspected source of infection? No. Patient's initial sepsis screen is negative. Risk Assessment: Do you want to hurt yourself or someone else? Patient reports no desire to harm self or others. Onset of symptoms was March 11, 2024. 09:12 Method Of Arrival: Ambulatory iw 09:12 Acuity: BRYANNA 4 iw Triage Assessment: 09:30 General: Appears in no apparent distress. Behavior is calm, cooperative. Pain: dd2 Complains of pain in lt facial. EENT: No deficits noted. Neuro: No deficits noted. Cardiovascular: No deficits noted. Respiratory: No deficits noted. GI: No deficits noted. : No deficits noted. Derm: No deficits noted. Musculoskeletal: No deficits noted. Historical: - Allergies: 09:13 No Known Allergies; iw - Home Meds: 09:13 quetiapine oral [Active]; iw - PMHx: 09:13 Depressive disorder; Anxiety; iw - PSHx: 09:13 wrist; iw - Immunization history:: Adult Immunizations. - Infectious Disease History:: Denies. - Social history:: Smoking status: Patient reports the use of cigarette tobacco products. Screenin:31 [facility] ED Fall Risk Assessment (Adult) History of falling in the last 3 months, dd2 including since admission No falls in past 3 months (0 pts) Confusion or Disorientation No (0 pts) Intoxicated or Sedated No (0 pts) Impaired Gait No (0 pts) Mobility Assist Device Used No (0 pt) Altered Elimination No (0 pt) Score/Fall Risk Level 0 - 2 = Low Risk Oriented to surroundings, Maintained a safe environment, Hourly rounding (assess needs \T\ fall precautionary measures) done. Abuse screen: Denies threats or abuse. Nutritional screening: No deficits noted. Tuberculosis screening: No symptoms or risk factors identified. Assessment: 09:31 Reassessment: see triage note for full assessment. dd2 Vital Signs: 09:12 BP 123 / 76; Pulse 57; Resp 16; Temp 98; Pulse Ox 98% ; Weight 68.04 kg; Height 5 ft. 8 iw in. ; Pain 7/10; 09:40 BP 121 / 74; Pulse 62; Resp 15; Pulse Ox 98% ; dd2 09:12 Body Mass Index 22.81 (68.04 kg, 172.72 cm) iw 09:12 Pain Scale: Adult iw ED Course: 09:00 Patient arrived in ED. mr 09:10 Lanny Mendieta MD is Attending Physician. sp3 09:13 Triage completed. iw 09:14 Arm band placed on. iw 09:18 KASANDRA ADAN RN is Primary Nurse. dd2 09:31 Patient has correct armband on for positive identification. Bed in low position. Call dd2 light in reach. Side rails up X 1. Provided Education on: call light, medication. Door closed. 09:31 No provider procedures requiring assistance completed. Patient did not have IV access dd2 during this emergency room visit. Administered Medications: No medications were administered Medication: 09:31 VIS not applicable for this client. dd2 Outcome: 09:37 Discharge ordered by . sp3 09:40 Discharged to home ambulatory, dd2 09:40 Condition: stable 09:40 Discharge instructions given to patient, Instructed on discharge instructions, follow up and referral plans. Demonstrated understanding of instructions, follow-up care, 09:41 Patient left the ED. dd2 Signatures: Dayana Bhatia, Reg Reg mr Crystal Guerrero RN RN iw Lanny Mendieta MD MD sp3 KASANDRA ADAN RN RN dd2
--- NOTE | 2024-03-13 09:38 | EDPHYS ---
Physician Documentation [facility] Name: Valentín Solis Age: 33 yrs Sex: Male : 1990 Arrival Date: 03/13/2024 Time: 08:58 Bed 16 Private MD: ED Physician Lanny Mendieta HPI: 03/13 09:33 This 33 yrs old Male presents to ER via Ambulatory with complaints of Facial Swelling. sp3 09:33 33-year-old male with history of anxiety and dental abscess recently seen here for sp3 right maxillary dental infection currently on Augmentin day 3 presents the ED again for reevaluation of swelling. Patient states that the swelling has not significantly decreased and he is concerned and wants to make sure "everything is okay". Patient denies any airway compromise, bleeding, fever, headache, or any other signs or symptoms on ROS at this time. He is in the process of making a dental appointment at the [facility] in [place].. Historical: - Allergies: 09:13 No Known Allergies; iw - Home Meds: 09:13 quetiapine oral [Active]; iw - PMHx: 09:13 Depressive disorder; Anxiety; iw - PSHx: 09:13 wrist; iw - Immunization history:: Adult Immunizations. - Infectious Disease History:: Denies. - Social history:: Smoking status: Patient reports the use of cigarette tobacco products. ROS: 09:34 Constitutional: Negative for fever, chills, and weight loss, Eyes: Negative for injury, sp3 pain, redness, and discharge, Neck: Negative for injury, pain, and swelling, Cardiovascular: Negative for chest pain, palpitations, and edema, Respiratory: Negative for shortness of breath, cough, wheezing, and pleuritic chest pain, Abdomen/GI: Negative for abdominal pain, nausea, vomiting, diarrhea, and constipation, Back: Negative for injury and pain, 09:34 All other systems are negative, Exam: 09:34 Constitutional: This is a well developed, well nourished patient who is awake, alert, sp3 and in no acute distress. Eyes: Pupils equal round and reactive to light, extra-ocular motions intact. Lids and lashes normal. Conjunctiva and sclera are non-icteric and not injected. Cornea within normal limits. Periorbital areas with no swelling, redness, or edema. ENT: Nares patent. No nasal discharge, no septal abnormalities noted. External auditory canals are clear. Oropharynx with no redness, swelling, or masses, exudates, or evidence of obstruction, uvula midline. Mucous membranes moist. Neck: Trachea midline, no thyromegaly or masses palpated, and no cervical lymphadenopathy. Supple, full range of motion without nuchal rigidity, or vertebral point tenderness. No Meningismus. Chest/axilla: Normal chest wall appearance and motion. Nontender with no deformity. No lesions are appreciated. Cardiovascular: Regular rate and rhythm with a normal S1 and S2. No gallops, murmurs, or rubs. Normal PMI, no JVD. No pulse deficits. Respiratory: Lungs have equal breath sounds bilaterally, clear to auscultation and percussion. No rales, rhonchi or wheezes noted. No increased work of breathing, no retractions or nasal flaring. Abdomen/GI: Soft, non-tender, with normal bowel sounds. No distension or tympany. No guarding or rebound. No evidence of tenderness throughout. 09:34 Head/face: Mild facial swelling lateral on the right side to the nose and superior to the maxilla. No significant airway compromise or any other significant findings.. Vital Signs: 09:12 BP 123 / 76; Pulse 57; Resp 16; Temp 98; Pulse Ox 98% ; Weight 68.04 kg; Height 5 ft. 8 iw in. ; Pain 7/10; 09:40 BP 121 / 74; Pulse 62; Resp 15; Pulse Ox 98% ; dd2 09:12 Body Mass Index 22.81 (68.04 kg, 172.72 cm) iw 09:12 Pain Scale: Adult iw MDM: 09:20 Patient medically screened. sp3 09:36 Data reviewed: vital signs, nurses notes. ED course: No significant concern for sepsis, sp3 airway compromise or any other critical pathology. I reassured patient that he needs to continue taking his antibiotic, ibuprofen and follow-up with a dentist as soon as possible. Vital signs are normal and patient is afebrile and will be safely discharged home at this time.. Administered Medications: No medications were administered Disposition Summary: 03/13/24 09:37 Discharge Ordered Notes: Location: Home sp3 Condition: Stable sp3 Diagnosis - Dental abscess sp3 Followup: sp3 - With: Private Physician - When: Upon discharge from the Emergency Department - Reason: Recheck today's complaints, Continuance of care Discharge Instructions: - Discharge Summary Sheet sp3 - Dental Abscess sp3 Forms: - Medication Reconciliation Form sp3 - Antibiotic Education sp3 - Prescription Opioid Use sp3 - Patient Portal Instructions sp3 - Leadership Thank You Letter sp3 Signatures: Crystal Guerrero RN RN Lanny Willis MD MD sp3
[2024-03-13 09:46] VITALS: TEMP 98; O2SAT 98
[2024-03-13 09:47] VITALS: BP 121/74
== END 2024-03-13 09:41 | disposition home or self-care (01) ==
LOC: ER 08:58
DX: K04.7 Periapical abscess without sinus (principal); F17.210 Nicotine dependence, cigarettes, uncomplicated
CPT/HCPCS: 99282